=== PATIENT | female | born 1950 | race Caucasian/White ===

== ENCOUNTER 2017-12-10 10:24 | Emergency (ER) | payer MEDICARE, OTHER ==
[~2017-12-10] VITALS: Ht 170.2 cm; Wt 86.2 kg
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
[2017-12-10] MEDS ORDERED: HYDROMORPHONE INJ 0.5 MG/0.5 ML SYRINGE ONE ×2 (10:58→11:32)
[2017-12-10] MEDS ORDERED: HYDROMORPHONE 1 MG/1 ML DISP.SYRIN IV ONE ×2 (11:00→12:00)
--- NOTE | 2017-12-10 11:13 | NUR ---
[employer] SAL[employer] AT BEDSIDE.
--- NOTE | 2017-12-10 11:19 | NUR ---
XRAY IN PROGRESS AT BS
[2017-12-10] MEDS ORDERED: LIDOCAINE /MPF 1% VIAL 5 ML VIAL ONE (11:53)
[2017-12-10] MEDS ORDERED: LIDOCAINE /MPF 1% VIAL 5 ML VIAL IJ ONE (12:00)
[2017-12-10] MEDS ORDERED: PROPOFOL 20 ML IV ONE (12:35)
--- NOTE | 2017-12-10 12:54 | NUR ---
TIME OUT FOR CONSCIOUS SEDATION FOR LEFT WRIST REDUCTION. PATIENT REMAINS STABLE. MD, RT, EMT, RN AT BEDSIDE.
[2017-12-10] MEDS ORDERED: PROPOFOL 200 MG/20 ML VIAL IV ONE (13:00)
--- NOTE | 2017-12-10 13:00 | NUR ---
LEFT WRIST REDUCTION COMPLETED. VITALS STABLE. WILL CONTINUE TO MONITOR.
[2017-12-10] MEDS ORDERED: HYDROCODONE/APAP 10/325MG 1 EA TABLET ONE (14:00)
[2017-12-10] MEDS ORDERED: HYDROCODONE/APAP 10/325MG 1 EA TABLET PO ONE (14:00)
[2017-12-10 14:20] VITALS: BP 143/75
--- NOTE | 2017-12-10 14:20 | NUR ---
IV removed. Catheter intact and site benign. Pressure and 4x4 applied to site. No bleeding noted.Patient discharged to home in stable condition. Written and verbal after care instructions given. Patient verbalizes understanding of instruction.
== END 2017-12-10 14:21 | disposition home or self-care (01) ==
LOC: ER 10:26
DX: S52.502A Unspecified fracture of the lower end of left radius, initial encounter for closed fracture (principal); S20.212A Contusion of left front wall of thorax, initial encounter; I10 Essential (primary) hypertension; Z60.2 Problems related to living alone; V43.52XA Car driver injured in collision with other type car in traffic accident, initial encounter; Y93.89 Activity, other specified; Y92.488 Other paved roadways as the place of occurrence of the external cause; Y99.8 Other external cause status
CPT/HCPCS: 25605; 71045; 73090; 73100; 73110; 93005; 96374 ×2; 99152; 99285; A4606; A6402; A6403; J2704; J3490; J7030; Z7610